=== PATIENT | male | born 1930 | race Hispanic/Latino ===

== ENCOUNTER 2017-08-05 09:53 | Outpatient (RCR) | payer MEDICARE, OTHER | END 2017-08-26 | LOC: PT 09:53 | PROVIDERS: ATTEND Specialist | DX: M25.511 Pain in right shoulder (principal); M25.512 Pain in left shoulder; M25.612 Stiffness of left shoulder, not elsewhere classified; M25.611 Stiffness of right shoulder, not elsewhere classified; M62.81 Muscle weakness (generalized); R26.9 Unspecified abnormalities of gait and mobility | CPT/HCPCS: 97162; G8990; G8991 ==